=== PATIENT | female | born 1985 | race Caucasian/White ===

== ENCOUNTER 2022-12-02 21:07 | Emergency (ER) | payer OTHER, MEDICAID ==
[~2022-12-02] VITALS: Ht 157.5 cm; Wt 58.1 kg
[2022-12-02 21:25] VITALS: BP 109/71; PULSE 71; RESP 16; TEMP 97.8; O2SAT 99
--- NOTE | 2022-12-02 21:28 | NUR ---
TO LOBBY A/W BED AMBULATORY
--- NOTE | 2022-12-02 23:29 | NUR ---
PT TAKEN TO ER CHAIR
--- NOTE | 2022-12-02 23:32 | NUR ---
PT TAKEN TO BED 1
[2022-12-03] MEDS ORDERED: methocarbamoL 500 MG TAB PO STA (00:18)
[2022-12-03] MEDS ORDERED: KETOROLAC 15 MG/ML VIAL IM ONE (00:20)
[2022-12-03] MEDS ORDERED: ACETAMINOPHEN 325 MG TAB PO ONE (00:20)
[2022-12-03] MEDS ORDERED: LID5T TP (01:05)
[2022-12-03] MEDS ORDERED: IBUP-2213 PO (01:05)
[2022-12-03] MEDS ORDERED: METH-1681 PO (01:05)
[2022-12-03 01:15] VITALS: BP 109/71; PULSE 71; RESP 16; TEMP 97.8; O2SAT 99
--- NOTE | 2022-12-03 01:15 | NUR ---
Patient discharged with v/s stable. Written and verbal after care instructions given and explained. Patient alert, oriented and verbalized understanding of instructions. Ambulatory with steady gait. All questions addressed prior to discharge. ID band removed. Patient advised to follow up with PMD. Rx of IBUPROFEN, LIDODERM, ROBAXIN given. Patient educated on indication of medication including possible reaction and side effects. Opportunity to ask questions provided and answered.
== END 2022-12-03 01:15 | disposition home or self-care (01) ==
LOC: MED 21:07
DX: S39.012A Strain of muscle, fascia and tendon of lower back, initial encounter (principal); S30.0XXA Contusion of lower back and pelvis, initial encounter; M25.562 Pain in left knee; Z79.899 Other long term (current) drug therapy; Z79.1 Long term (current) use of non-steroidal anti-inflammatories (NSAID); V89.2XXA Person injured in unspecified motor-vehicle accident, traffic, initial encounter; Y93.89 Activity, other specified; Y92.410 Unspecified street and highway as the place of occurrence of the external cause; Y99.8 Other external cause status
CPT/HCPCS: 72110; 73562; 99284; J1885